=== PATIENT | male | born 1995 | race Caucasian/White ===

== ENCOUNTER 2020-04-27 17:36 | Emergency (ER) | payer BC ==
[~2020-04-27] VITALS: Ht 165.1 cm; Wt 52.6 kg
[2020-04-27 18:41] LABS: INFLUENZA A ANTIGEN Negative (Negative); INFLUENZA B ANTIGEN Negative (Negative)
[2020-04-27 19:28] VITALS: BP 115/60
== END 2020-04-27 19:28 | disposition home or self-care (01) ==
LOC: M.ERS 17:36
PROVIDERS: Physician Assistant
DX: R19.7 Diarrhea, unspecified (principal); Z90.49 Acquired absence of other specified parts of digestive tract